=== PATIENT | male | born 1955 | race Two or more races ===

== ENCOUNTER → 2017-05-16 | Day surgery (SDC) | payer OTHER ==
[~2017-05-16] MED LIST: ACETAMINOPHEN PR; ACTOS PO; AMARYL; AMARYL PO; ASPIRIN81 M2 PO; ASPIRINEC PO; CLARISPRAY9.9 ML; CLARITIN10 M3 PO; FLOMAX0.4 M1; FLOMAX0.4 M1 PO; FLOMAX0.4 MG PO; GLUCOPHAGE500 MG PO; IMDUR PO; IMDUR-ER30 M2; LEVOTHYROXINE50 MC1 PO; LEVOXYL50 MC1; METFORMIN; NEXIUM; NEXIUM PO; PSORCON TOP; SYNTHROID PO; TOPROL XL; TOPROL XL 50 MG50 MG PO; TOPROL XL PO; TRAMADOL HCL50 M1 PO; VICTOZA0.6 MG/0.1 SUBQ; VITAMIN D250000 UNIT PO; VOLTAREN50 MG PO; ZOCOR; ZOCOR PO; ZOCOR10 MG PO
--- NOTE | ~2017-05-16 | OR ---
Unit #: [id number] #: [id number] Patient: MAGDY HERNANDEZ [id number] [address] [id number] [id number] MR#: [id number] NAME: MAGDY HERNANDEZ ROOM: Date of Procedure: 05/16/2017 Admission Date: 05/16/2017 Surgeon: Jarvis Roa M.D. : 1955 Attending Physician: Jarvis Roa M.D. Primary Care Physician: Tayler Crowder M.D. OPERATIVE REPORT PREOPERATIVE DIAGNOSES Cervical herniated nucleus pulposus, neck pain, cervical radiculopathy. POSTOPERATIVE DIAGNOSES Cervical herniated nucleus pulposus, neck pain, cervical radiculopathy. PROCEDURE PERFORMED Cervical epidural steroid injection with intravenous sedation and fluoroscopic guidance for needle localization. INDICATIONS FOR PROCEDURE The patient is a 61-year-old male with neck and right greater than left upper extremity pain, came primarily to see for right-sided disk herniation. He has degenerative disk and facet disease above and below this. He failed to settle with conservative treatment. In the past, epidural steroids have been given 3 to 4 months of improvement with a single injection. At this point, his pain is re-flared. Plan is to repeat an epidural steroid injection. DESCRIPTION OF PROCEDURE The patient was placed in a seated position. Standard monitors were applied. 1 mg of Versed was given for sedation and anxiolysis, which was adequate. Vital signs remained stable. Sterile prep and drape then of the cervical area was performed. The skin then at the C6 level was localized with 1% lidocaine. An 18-gauge [employer] srltead needle was then advanced via hanging drop technique and fluoroscopic guidance in toward the epidural space. After confirming proper positioning with fluoroscopy and radiographic contrast, 80 mg of Depo-Medrol and 2 mL of 0.25% bupivacaine were deposited. The patient tolerated the procedure otherwise well and was discharged to the recovery room in stable condition. Dictated by... Jarvis Roa M.D. LHP/modl TD: 05/16/2017 14:30 JOB #: [id number] Unit #: [id number] #: [id number] Patient: MAGDY HERNANDEZ OPERATIVE REPORT Page 1 of 1 X Jarvis Roa MD X PROCEDURE OPERATIVE NOTE
== END | disposition home or self-care (01) ==
LOC: CCSC 08:44
DX: M50.10 Cervical disc disorder with radiculopathy, unspecified cervical region (principal); M53.82 Other specified dorsopathies, cervical region; E11.9 Type 2 diabetes mellitus without complications; I25.10 Atherosclerotic heart disease of native coronary artery without angina pectoris; K21.9 Gastro-esophageal reflux disease without esophagitis; E03.9 Hypothyroidism, unspecified; Z87.01 Personal history of pneumonia (recurrent); Z79.82 Long term (current) use of aspirin; Z79.84 Long term (current) use of oral hypoglycemic drugs; Z79.899 Other long term (current) drug therapy
CPT/HCPCS: 82947; J1040; J2250